=== PATIENT | male | born 1940 ===

== ENCOUNTER 2024-03-06 17:01 | Inpatient (IN) | payer OTHER ==
[~2024-03-06] VITALS: Ht 162.6 cm; Wt 50.0 kg
[2024-03-06 17:58] LABS: ANION GAP 12 mmol/L (8-16); CALCIUM, TOTAL 8.5 mg/dL (8.8-10.5); CARBON DIOXIDE 23 mmol/L (22-29); CHLORIDE 104 mmol/L (98-107); CREATININE 1.02 mg/dL (0.60-1.30); GLOMERULAR FILTR. RATE CALC > 60 mL/min (>60); GLUCOSE,RANDOM 261 mg/dL (70-110); POTASSIUM 3.7 mmol/L (3.5-5.1); SODIUM SERUM 139 mmol/L (136-145); UREA NITROGEN, BLOOD 46 mg/dL (7-18)
[2024-03-06 18:04] LABS: ALANINE AMINOTRANSFERASE 148 U/L (12-78); ALBUMIN 2.3 g/dL (3.4-5.0); ALKALINE PHOSPHATASE 121 U/L (46-116); ASPARTATE AMINOTRANSFERASE 268 U/L (15-37); BILIRUBIN,TOTAL 1.1 mg/dL (0.1-1.0); PROTHROMBIN TIME 13.4 SEC (9.4-11.6); TOTAL PROTEIN, SERUM 4.6 g/dL (6.4-8.2)
[2024-03-06 18:05] LABS: HEMATOCRIT 42.1 % (41-53); HEMOGLOBIN 13.7 g/dL (13.5-17.5); MEAN CORPUSCULAR HEMOGLOBIN 30.7 pg (26.0-34.0); MEAN CORPUSCULAR HGB CONC 32.5 G/dL (31.0-37.0); MEAN CORPUSCULAR VOLUME 94 fL (80-100); PLATELET COUNT (AUTO) 114 K/uL (150-450); RED BLOOD CELL COUNT(AUTO) 4.46 MIL/uL (4.50-5.90); RED CELL DISTRIBUTION WIDTH 13.8 % (11.5-14.5); WHITE BLOOD COUNT (AUTO) 16.7 K/uL (4.5-11.0)
[2024-03-06 18:15] LABS: TROPONIN I-HIGH SENSITIVITY 101 ng/L (<76)
[2024-03-06] MEDS: SODIUM CHLORIDE 0.9% 1,800 ML IV ONE (18:39)
[2024-03-06] MEDS: CefTRIAXone 1 GM/DEXTROSE 50 ML IV ONE (18:48)
[2024-03-06 18:50] LABS: APPEARANCE,URINE HAZY (CLEAR); BILIRUBIN,URINE NEGATIVE (NEGATIVE); COLOR,URINE YELLOW (YELLOW); GLUCOSE, URINE (UA) 300-500 mg/dL (NEGATIVE); LEUKOCYTE ESTERASE ,URINE NEGATIVE (NEGATIVE); NITRATE,URINE NEGATIVE (NEGATIVE); OCCULT BLOOD,URINE MODERATE (NEGATIVE); PROTEIN,URINE 30-70 mg/dL (NEGATIVE); SPECIFIC GRAVITIY, URINE 1.018 (1.003-1.030); UROBILINOGEN,URINE <=1.0 mg/dL (<=1.0)
[2024-03-06 18:57] LABS: BAND NEUTROPHILS % (MANUAL) 10 % (0-5); BASOPHILS % (MANUAL) 1 % (0-2); EOSINOPHILS % (MANUAL) 1 % (1-6); LYMPHOCYTES % (MANUAL) 3 % (22-44); MONOCYTES % (MANUAL) 4 % (2-9); SEGMENTED NEUTROPHILS % 81 % (40-70); TOTAL CELLS COUNTED 100
[2024-03-06 18:58] LABS: RBC MORPHOLOGY COMMENT NORMAL RBC MORPH
[2024-03-06 19:17] LABS: BACTERIA,URINE Few /HPF (None Seen)
[2024-03-06 19:18] LABS: AMORPHOUS SEDIMENT,UR Moderate /LPF (None Seen)
[2024-03-06 19:36] LABS: LACTIC ACID 2.2 mmol/L (0.4-2.0)
[2024-03-06] MEDS: NOREPINEPHRINE 8 MG/0.9 % NACL 250 ML IV PRN (20:41)
[2024-03-06] MEDS ORDERED: ZOLPIDEM TARTRATE 5 MG TABLET PO PRN (22:00)
[2024-03-06] MEDS ORDERED: MAGNESIUM HYDROXIDE SUSPENSION 30 ML UDCUP PO PRN (22:00)
[2024-03-06] MEDS ORDERED: IPRATROPIUM BROMIDE 0.5 MG/2.5 ML NEB SOLUTION NEB PRN (22:00)
[2024-03-06] MEDS ORDERED: ONDANSETRON HCL 4 MG/2 ML VIAL IVP PRN (22:00)
[2024-03-06] MEDS ORDERED: MORPHINE SULFATE 2 MG/ML SYRINGE IVP PRN (22:00)
[2024-03-06] MEDS ORDERED: ACETAMINOPHEN 325 MG TABLET PO PRN (22:00)
[2024-03-06] MEDS ORDERED: HYDROCODONE/ACETAMINOPHEN 5-325 MG TABLET PO PRN (22:00)
[2024-03-06] MEDS ORDERED: BISACODYL 10 MG RECTAL RECTAL SUPPOSITORY PR PRN (22:00)
[2024-03-06] MEDS ORDERED: ALBUTEROL SULFATE 2.5 MG/0.5 ML NEB SOLUTION NEB PRN (22:00)
[2024-03-06] MEDS: PERTUSS(ACELL),DIPH,TET/PF 0.5 ML SYRINGE [ADULT] IM. ONE (22:34)
[2024-03-06] MEDS: PIPERACILLIN/TAZO 3.375 GM/D5W 50 ML IV ONE (22:34)
[2024-03-06] MEDS: HEPARIN SODIUM,PORCINE 5,000 UNITS/ML VIAL SQ SCH (23:25)
[2024-03-07 00:02] LABS: TROPONIN I-HIGH SENSITIVITY 102 ng/L (<76)
[2024-03-07 07:51] LABS: TROPONIN I-HIGH SENSITIVITY 81 ng/L (<76)
[2024-03-07] MEDS: PANTOPRAZOLE SODIUM 40 MG/VIAL IVP SCH (07:58)
[2024-03-07] MEDS: DOCUSATE SODIUM 100 MG CAPSULE PO SCH (07:58)
[2024-03-07] MEDS: ALBUMIN HUMAN 25%-12.5GM/50ML 50 ML IV ONE (10:40)
[2024-03-07 11:23] LABS: COVID AG,FIA SOURCE NASAL SWAB
[2024-03-07 12:04] LABS: INFLUENZA TYPE A NEGATIVE FOR TYPE A (NEGATIVE); INFLUENZA TYPE B NEGATIVE FOR TYPE B (NEGATIVE); SARS-COV2 (COVID) ANTIGEN,FIA Negative (Negative)
[2024-03-07] MEDS: LORazepam 2 MG/ML VIAL IVP ONE (15:35)
[2024-03-07] MEDS ORDERED: CefTRIAXone 1 GM/DEXTROSE 50 ML IV SCH (18:00)
[2024-03-07 20:00] VITALS: BP 115/62; PULSE 65; RESP 17; TEMP 98.3; O2SAT 97
[2024-03-07] MEDS ORDERED: SODIUM CHLORIDE 0.9% 500 ML IV ONE (22:15)
[2024-03-07] MEDS: PIPERACILLIN/TAZO 3.375 GM/D5W 50 ML IV SCH (22:57)
[2024-03-07] MEDS: VANCOMYCIN 1.25 GM/WATER(PEG) 250 ML IV ONE (22:57)
[2024-03-08] VITALS: BP 110/51; PULSE 67; RESP 17; TEMP 98; O2SAT 98
[2024-03-08 00:56] LABS: GLUCOMETER DEV NAME(LOC) 5N.1D; GLUCOSE,POINT OF CARE 106 MG/DL (70-110)
[2024-03-08 05:41] VITALS: BP 127/54; PULSE 63; RESP 16; TEMP 98.5; O2SAT 95
[2024-03-08 07:45] LABS: BASOPHILS % (AUTO) 0.1 % (0.0-2.0); EOSINOPHILS % (AUTO) 0 % (1.0-6.0); HEMATOCRIT 40.3 % (41-53); HEMOGLOBIN 13.4 g/dL (13.5-17.5); LYMPHOCYTES # (AUTO) 0.5 K/uL (1.0-4.8); LYMPHOCYTES % (AUTO) 3.6 % (22.0-44.0); MEAN CORPUSCULAR HEMOGLOBIN 31.3 pg (26.0-34.0); MEAN CORPUSCULAR HGB CONC 33.3 G/dL (31.0-37.0); MEAN CORPUSCULAR VOLUME 94 fL (80-100); MONOCYTES # (AUTO) 1.1 K/uL (0.1-1.0); MONOCYTES % (AUTO) 8.4 % (2.0-9.0); NEUTROPHILS # (AUTO) 11.1 K/uL (1.8-7.7); PLATELET COUNT (AUTO) 137 K/uL (150-450); RED BLOOD CELL COUNT(AUTO) 4.29 MIL/uL (4.50-5.90); RED CELL DISTRIBUTION WIDTH 14.2 % (11.5-14.5); WHITE BLOOD COUNT (AUTO) 12.6 K/uL (4.5-11.0)
[2024-03-08 07:49] VITALS: BP 138/59; PULSE 62; RESP 18; TEMP 99.7; O2SAT 95
[2024-03-08 07:49] LABS: CREATININE 2.53 mg/dL (0.60-1.30); POTASSIUM 4.2 mmol/L (3.5-5.1)
[2024-03-08 07:51] LABS: NEUTROPHILS % (AUTO) 87.9 % (40.0-70.0)
[2024-03-08] MEDS: VANCOMYCIN HCL 750 MG in DEXTROSE 5%-WATER 250 ML IV SCH (08:36)
[2024-03-08] MEDS ORDERED: VANCOMYCIN 1GM/WATER(PEG/NADA) 200 ML IV PRN (09:30)
[2024-03-08] MEDS: PIPERACILLIN SODIUM/TAZOBACTAM 2.25 GM in DEXTROSE 5%-WATER 50 ML IV SCH (10:39)
[2024-03-08 11:40] VITALS: BP 115/96; PULSE 96; RESP 18; TEMP 99.5; O2SAT 95
[2024-03-08 17:08] VITALS: BP 131/58; PULSE 61; RESP 19; TEMP 100.4; O2SAT 96
[2024-03-08 19:16] VITALS: BP 142/56; PULSE 61; RESP 18; TEMP 97.9; O2SAT 94
[2024-03-08] MEDS: DEXTROSE 5%-0.45% SODIUM CHL 1,000 ML IV SCH (22:24)
[2024-03-09] VITALS (7 sets, daily range): BP systolic 118–153; BP diastolic 60–91; PULSE 60–62; RESP 20–24; TEMP 96.9–99.1; O2SAT 96–99
[2024-03-09 07:14] LABS: CREATININE 1.66 mg/dL (0.60-1.30); POTASSIUM 3.9 mmol/L (3.5-5.1)
[2024-03-09] MEDS: VANCOMYCIN HCL 750 MG in DEXTROSE 5%-WATER 250 ML IV SCH (08:39)
[2024-03-09] MEDS: DEXTROSE 5%-WATER 1,000 ML IV SCH (20:45)
[2024-03-10 05:12] VITALS: BP 153/85; PULSE 60; RESP 24; TEMP 97; O2SAT 90
[2024-03-10 08:20] LABS: BASOPHILS % (AUTO) 0.1 % (0.0-2.0); EOSINOPHILS % (AUTO) 0 % (1.0-6.0); HEMATOCRIT 47.2 % (41-53); HEMOGLOBIN 15.2 g/dL (13.5-17.5); LYMPHOCYTES % (AUTO) 4.9 % (22.0-44.0); MEAN CORPUSCULAR HGB CONC 32.1 G/dL (31.0-37.0); MEAN CORPUSCULAR VOLUME 97 fL (80-100); MONOCYTES # (AUTO) 1.6 K/uL (0.1-1.0); MONOCYTES % (AUTO) 7.7 % (2.0-9.0); NEUTROPHILS # (AUTO) 17.7 K/uL (1.8-7.7); PLATELET COUNT (AUTO) 91 K/uL (150-450); RED BLOOD CELL COUNT(AUTO) 4.89 MIL/uL (4.50-5.90); WHITE BLOOD COUNT (AUTO) 20.3 K/uL (4.5-11.0)
[2024-03-10 08:26] LABS: NEUTROPHILS % (AUTO) 87.3 % (40.0-70.0)
[2024-03-10 08:38] LABS: ALBUMIN 1.9 g/dL (3.4-5.0); BILIRUBIN,TOTAL 1.2 mg/dL (0.1-1.0); CALCIUM, TOTAL 8.1 mg/dL (8.8-10.5); CREATININE 1.25 mg/dL (0.60-1.30); POTASSIUM 4.1 mmol/L (3.5-5.1); TOTAL PROTEIN, SERUM 5.3 g/dL (6.4-8.2)
[2024-03-10 08:57] VITALS: BP 151/75; PULSE 60; RESP 13; TEMP 96.9; O2SAT 67
[2024-03-10] MEDS: VANCOMYCIN HCL 1 GM/D5% WATER 200 ML IV SCH (10:00)
[2024-03-10 15:38] VITALS: BP 154/69; PULSE 60; RESP 13; TEMP 97.1; O2SAT 100
[2024-03-10 18:18] VITALS: PULSE 60; O2SAT 100
[2024-03-10 19:25] VITALS: BP 125/63; PULSE 62; RESP 16; TEMP 97.3; O2SAT 100
[2024-03-11 04:53] VITALS: BP 141/75; PULSE 60; RESP 15; TEMP 97.3; O2SAT 98
[2024-03-11 07:58] VITALS: BP 130/66; PULSE 62; RESP 14; TEMP 97.4; O2SAT 97
[2024-03-11 08:39] LABS: BASOPHILS % (AUTO) 0.1 % (0.0-2.0); EOSINOPHILS % (AUTO) 0.1 % (1.0-6.0); HEMATOCRIT 43.8 % (41-53); HEMOGLOBIN 14.3 g/dL (13.5-17.5); LYMPHOCYTES # (AUTO) 0.8 K/uL (1.0-4.8); LYMPHOCYTES % (AUTO) 4.7 % (22.0-44.0); MEAN CORPUSCULAR HEMOGLOBIN 31.2 pg (26.0-34.0); MEAN CORPUSCULAR HGB CONC 32.7 G/dL (31.0-37.0); MEAN CORPUSCULAR VOLUME 95 fL (80-100); MONOCYTES % (AUTO) 6.1 % (2.0-9.0); NEUTROPHILS # (AUTO) 14.4 K/uL (1.8-7.7); RED CELL DISTRIBUTION WIDTH 14.4 % (11.5-14.5); WHITE BLOOD COUNT (AUTO) 16.2 K/uL (4.5-11.0)
[2024-03-11 09:02] LABS: ALANINE AMINOTRANSFERASE 92 U/L (12-78); ALBUMIN 1.7 g/dL (3.4-5.0); ALKALINE PHOSPHATASE 98 U/L (46-116); ANION GAP 3 mmol/L (8-16); ASPARTATE AMINOTRANSFERASE 99 U/L (15-37); BILIRUBIN,TOTAL 0.9 mg/dL (0.1-1.0); CALCIUM, TOTAL 8.1 mg/dL (8.8-10.5); CARBON DIOXIDE 32 mmol/L (22-29); CHLORIDE 117 mmol/L (98-107); CREATININE 1.02 mg/dL (0.60-1.30); GLOMERULAR FILTR. RATE CALC > 60 mL/min (>60); GLUCOSE,RANDOM 137 mg/dL (70-110); POTASSIUM 3.7 mmol/L (3.5-5.1); SODIUM SERUM 152 mmol/L (136-145); TOTAL PROTEIN, SERUM 5.2 g/dL (6.4-8.2); UREA NITROGEN, BLOOD 38 mg/dL (7-18)
[2024-03-11 09:12] LABS: PLATELET COUNT (AUTO) 81 K/uL (150-450)
[2024-03-11] MEDS ORDERED: AMOX-457 PO (11:12)
== END 2024-03-11 13:20 | disposition hospice, home (50) | DRG 871 ==
LOC: EMS 17:01 → EDH 23:12 → 5N 03-07 18:20 → 4E 03-09 19:34
PROVIDERS: ADMIT Hospitalist; ATTEND Hospitalist
DX: A41.9 Sepsis, unspecified organism (principal); J69.0 Pneumonitis due to inhalation of food and vomit; Z20.822 Contact with and (suspected) exposure to COVID-19; R65.21 Severe sepsis with septic shock; J98.11 Atelectasis; N17.9 Acute kidney failure, unspecified; X58.XXXA Exposure to other specified factors, initial encounter; S01.312A Laceration without foreign body of left ear, initial encounter; G93.89 Other specified disorders of brain; Z66 Do not resuscitate; J98.4 Other disorders of lung; M41.84 Other forms of scoliosis, thoracic region; Z51.5 Encounter for palliative care; Z79.899 Other long term (current) drug therapy; Y93.89 Activity, other specified; Y92.89 Other specified places as the place of occurrence of the external cause; Y99.8 Other external cause status
CPT/HCPCS: 51702; 71045; 71250; 80048; 80053; 80202; 81001; 82948; 82962; 83605; 84145; 84484; 85025; 85610; 85730; 87040; 87804; 90715; 92610; 93005; 94640; 99285; G0378; J0696; J1644; J2060; J2470; J2543; J3370; J7040; J7060; P9047; 36415-L1; 36415-TC; 70450; 70450-TC